=== PATIENT | male | born 1995 | race Caucasian/White ===

== ENCOUNTER 2022-11-08 03:30 | Emergency (ER) | payer BC, OTHER ==
[~2022-11-08] VITALS: Ht 177.8 cm; Wt 111.6 kg
[2022-11-08] MEDS ORDERED: ZYRTTAB8 PO (03:58)
[2022-11-08 04:54] LABS: LIPASE 32 U/L (12-53)
[2022-11-08 04:56] LABS: ALKALINE PHOSPHATASE 46 U/L (46-116); ALT/SGPT 56 U/L (7.0-40); AST/SGOT 33 U/L (<34); BILIRUBIN,DIRECT 0.3 MG/DL (<0.4); BILIRUBIN,TOTAL 0.9 MG/DL (0.3-1.2); BLOOD UREA NITROGEN 25 MG/DL (9-23); CARBON DIOXIDE LEVEL 24 MMOL/L (20-31); CHLORIDE LEVEL 104 MMOL/L (98-107); CREATININE FOR GFR 1.38 MG/DL (0.70-1.30); GLOMERULAR FILTRATION RATE > 60.0 (>60); GLUCOSE, FASTING 149 MG/DL (60-100); POTASSIUM SERUM 5.1 MMOL/L (3.5-5.1); SODIUM LEVEL 138 MMOL/L (136-145); TOTAL PROTEIN 8.6 G/DL (5.7-8.2)
[2022-11-08] MEDS ORDERED: PANTOPRAZOLE 40MG VIAL IV ONE (06:50)
[2022-11-08] MEDS ORDERED: NS 1,000 ML IV ONE ×2 (06:50→08:25)
[2022-11-08] MEDS ORDERED: MORPHINE 4 MG/ML 1ML VIAL IV ONE (06:50)
[2022-11-08] MEDS ORDERED: ISOVUE-370 76% 100ML VIAL As Ordered ONE (06:54)
[2022-11-08 08:11] LABS: BASO % 0.3 % (0.0-1.0); HEMATOCRIT 50.4 % (42.0-52.0); LYMPH # 0.2 10^3/uL (1.5-5.0); LYMPH % 1.9 % (24.0-44.0); MEAN CORPUSCULAR HGB CONC 35.7 g/dl (32.0-36.5); MEAN CORPUSCULAR VOLUME 89.7 fl (80.0-96.0); MONO # 0.5 10^3/uL (0.0-0.8); MONO % 4.4 % (2.0-8.0); NEUTROPHILS # 9.9 10^3/uL (1.5-8.5); PLATELET COUNT, AUTOMATED 308 10^3/uL (150-450); RED BLOOD COUNT 5.62 10^6/uL (4.30-6.10); WHITE BLOOD COUNT 10.6 10^3/uL (4.0-10.0)
[2022-11-08] MEDS ORDERED: DICYCLOMINE 10 MG CAP PO ONE (08:35)
[2022-11-08] MEDS ORDERED: GI COCKTAIL 50ML BTL(HYOSCYAMINE/MAALOX/LIDOCAINE VISCOUS)(1:3:1) PO ONE (09:40)
[2022-11-08] MEDS ORDERED: MORPHINE 2 MG/ML 1ML VIAL IV ONE (09:40)
[2022-11-08 10:00] LABS: APPEARANCE, URINE CLEAR (CLEAR); BACTERIA, URINE AUTO NEGATIVE (NEGATIVE); BILIRUBIN, URINE AUTO NEGATIVE (NEGATIVE); BLOOD, URINE BLOOD NEGATIVE (NEGATIVE); COLOR, URINE YELLOW (YELLOW); GLUCOSE, URINE (UA) AUTO NEGATIVE (NEGATIVE); KETONE, URINE AUTO NEGATIVE (NEGATIVE); LEUKOCYTE ESTERASE, URINE AUTO NEGATIVE (NEGATIVE); MUCUS, URINE SMALL (NEGATIVE); NITRITE, URINE AUTO NEGATIVE (NEGATIVE); PROTEIN, URINE AUTO NEGATIVE (NEGATIVE); RBC, URINE AUTO 0 /HPF (0-3); SQUAMOUS EPITHELIAL CELL UR AU 0 /HPF (0-6); UROBILINOGEN, URINE AUTO 0.2 mg/dL (0.0-2.0); WBC, URINE AUTO 0 /HPF (0-3)
[2022-11-08] MEDS ORDERED: PROT1TAB2 PO (10:17)
[2022-11-08] MEDS ORDERED: DICY20TA20 PO (10:17)
[2022-11-08] MEDS ORDERED: ONDA4TAB6 PO (10:17)
[2022-11-08 10:29] VITALS: BP 122/66
== END 2022-11-08 10:32 | disposition home or self-care (01) ==
LOC: M ED 03:30 → EDBD 03:30 → M ED 10:32
DX: A08.11 Acute gastroenteropathy due to Norwalk agent (principal); Z88.0 Allergy status to penicillin; Z88.6 Allergy status to analgesic agent; Z79.83 Long term (current) use of bisphosphonates; Z79.899 Other long term (current) drug therapy
CPT/HCPCS: 74177; 80048; 80076; 81001; 83690; 85025; 87486; 87507; 87581; 87633; 87798; 96361; 96374; 96375; 99284; C9113; J2270